=== PATIENT | female | born 1985 | race Caucasian/White ===

== ENCOUNTER 2023-01-31 06:45 | Day surgery (SDC) | payer BC ==
[~2023-01-31] VITALS: Ht 162.6 cm; Wt 116.1 kg
[2023-01-31] MEDS ORDERED: ceFAZolin SODIUM 2 GM in D5W 100 ML IV ONE (07:00)
[2023-01-31 07:50] LABS: HCG,QUAL RESULT NEGATIVE (NEGATIVE)
[2023-01-31] MEDS ORDERED: NS 1000 ML IV.SOLN IV ONE (10:55)
[2023-01-31] MEDS ORDERED: HYDROmorphone 2 MG/ML VIAL ONE (10:55)
[2023-01-31] MEDS ORDERED: DEXAMETHASONE SOD PHOSPHATE 4 MG/ML VIAL ONE (10:55)
[2023-01-31] MEDS ORDERED: BUPIVACAINE /PF 0.25% 30 ML VIAL INJ ONE (10:55)
[2023-01-31] MEDS ORDERED: GLYCOPYRROLATE 0.2 MG/ML VIAL ONE (10:55)
[2023-01-31] MEDS ORDERED: ONDANSETRON HCL 4 MG/2 ML VIAL ONE (10:55)
[2023-01-31] MEDS ORDERED: WATER FOR IRRIGATION,STERILE 1,000 ML IRRIG.SOLN IR ONE (10:55)
[2023-01-31] MEDS ORDERED: NEOSTIGMINE METHYLSULFATE 1 MG/ML, 10 ML VIAL ONE (10:55)
[2023-01-31] MEDS ORDERED: MIDAZOLAM HCL 5 MG/ML VIAL (VERSED) IV ONE (10:55)
[2023-01-31] MEDS ORDERED: ePHEDrine sulfate 50 MG/ML VIAL ONE (10:55)
[2023-01-31] MEDS ORDERED: ROCURONIUM BROMIDE 10 MG/ML (ZEMURON) ONE (10:55)
[2023-01-31] MEDS ORDERED: SEVOFLURANE 15 MIN GAS INH ONE (10:55)
[2023-01-31] MEDS ORDERED: LR 1,000 ML IV.SOLN IV ONE (10:55)
[2023-01-31] MEDS ORDERED: DIPHENHYDRAMINE INJ 50 MG/ML VIAL ONE (10:55)
[2023-01-31] MEDS ORDERED: METOCLOPRAMIDE HCL 10 MG/2 ML VIAL ONE (10:55)
[2023-01-31] MEDS ORDERED: NS IRRIG SOLN 1000 ML IR ONE (10:55)
[2023-01-31] MEDS ORDERED: METOCLOPRAMIDE HCL 10 MG/2 ML VIAL IVP PRN (11:00)
[2023-01-31] MEDS ORDERED: HYDROmorphone 1 MG/ML INJ. CARTRIDGE IVP PRN ×2 (11:00)
[2023-01-31] MEDS ORDERED: ONDANSETRON HCL 4 MG/2 ML VIAL IVP PRN (11:00)
[2023-01-31] MEDS ORDERED: KETOROLAC TROMETHAMINE 30 MG VIAL IVP PRN (11:15)
[2023-01-31] MEDS ORDERED: traMADol HCL HCL 50 MG TABLET (ULTRAM) PO PRN (11:30)
[2023-01-31 15:32] VITALS: BP_SYST 129; PULSE 75; RESP 18; O2SAT 100
== END 2023-01-31 13:00 | disposition home or self-care (01) ==
LOC: SDS 06:45 → SMU 06:49 → SDS 13:00
PROVIDERS: ATTEND Surgery
DX: K80.10 Calculus of gallbladder with chronic cholecystitis without obstruction (principal); K21.9 Gastro-esophageal reflux disease without esophagitis; G89.29 Other chronic pain; Z91.048 Other nonmedicinal substance allergy status; Z79.899 Other long term (current) drug therapy
CPT/HCPCS: 47563; 84703; 74300; 88304; J3490 ×2; J1100; J1200; J2765; J2250; J2405; J1170; Q9967; J7060; J7120; J7030; C1758; C1727; J2710; 76000